=== PATIENT | female | born 1995 | race Caucasian/White ===

== ENCOUNTER → 2024-07-04 | Outpatient (CLI) | payer BC ==
--- NOTE | 2024-08-04 13:28 | P.CEMON ---
30 Day Event monitor note: Patient wore an event monitor for 30 days from 07/04/2024 through 08/02/2024. Findings: Patient's baseline heart rate was normal sinus rhythm. There were no signficant atrial fibrillation, atrial flutter, or ventricular tachycardia episodes. There were no significant pauses greater than 2 seconds. There were 2 patient activated events which corresponded with dizziness and palpitations which corresponded with sinus rhythm and sinus tachycardia. There were no significant PACs or PVCs or SVT. Conclusions: 30-day event monitor showing normal sinus rhythm with patient's symptoms correlated with sinus rhythm.
== END | disposition home or self-care (01) ==
LOC: RADECHMAIN 10:00
PROVIDERS: ATTEND Student in an Organized Health Care Education/Training Program
DX: R00.2 Palpitations (principal)
CPT/HCPCS: 93270